=== PATIENT | female | born 1970 ===

== ENCOUNTER 2022-06-29 08:13 | Day surgery (SDC) | payer MEDICAID ==
[~2022-06-29 08:13] MED LIST: Lactated Ringers 1,000 ML IV SCH; Sodium Chloride 0.9% 10 ML Syringe FLUSH PRN
[2022-06-29] MEDS ORDERED: Glycopyrrolate 0.2 MG/ML 5 ML MDV IV ONE (08:14)
[2022-06-29] MEDS ORDERED: Propofol 200 MG/20 ML SDV IV ONE (08:14)
[2022-06-29] MEDS ORDERED: Lidocaine 2% 100 MG/5 ML Syringe IVPUSH ONE (08:14)
[2022-06-29] MEDS ORDERED: Midazolam 1 MG/ML 2 ML SDV IV ONE (08:14)
== END 2022-06-29 11:35 | disposition home or self-care (01) ==
LOC: FB.SDS 08:13
PROVIDERS: ATTEND Surgery
DX: Z12.11 Encounter for screening for malignant neoplasm of colon (principal); K63.5 Polyp of colon; Z79.899 Other long term (current) drug therapy; Z79.890 Hormone replacement therapy
CPT/HCPCS: 00812; 45384; 45385; 88305; J2250; J2704; J3490; J7120